=== PATIENT | female | born 1950 | race Caucasian/White ===

== ENCOUNTER 2019-03-19 20:28 | Inpatient (IN) ==
[2019-03-19] MEDS ORDERED: ONDANSETRON INJ 2 MG/ML 2 ML VIAL IV STA (20:55)
[2019-03-19] MEDS ORDERED: MoRPHine SULFATE 4 MG/ML 1 ML CARP\\VIAL IV STA (20:55)
--- NOTE | 2019-03-19 21:20 | XRay Report ---
XR tibia fibula LT 2V HISTORY: 68 years-old Female fall eval for fx acute left lower leg pain status post fall COMPARISON: None available TECHNIQUE: 2 views of the left tibia and fibula FINDINGS: Acute comminuted, displaced and angulated fracture about the distal metadiaphyseal fibula demonstrate 27 degrees apex medial and 30 degrees apex volar angulation with 8 mm volar displacement of the dist al fracture fragments. Additionally, there is a comminuted and displaced fracture of the medial malle olus which demonstrates 1.8 cm medial displacement. [place] medial angulation of the distal tibia in rel ation to the talus with pathologic widening of the distal tibiofibular syndesmosis. Subluxation of th e tibiotalar joint, best appreciated on the lateral film. Moderate soft tissue swelling about the ank le with posttraumatic joint effusion. Proximal tibia and fibula appear intact. IMPRESSION: Acute fracture subluxation of the ankle with medial malleolar and distal fibular fracture s as above. The above report was generated using voice recognition software. It may contain grammatical, syntax o r spelling errors. Electronically signed by: Ruben Long M.D. 03/19/2019 9:19 PM
--- NOTE | 2019-03-19 21:22 | XRay Report ---
XR hand RT min 3V routine HISTORY: 68 years-old Female fall eval for fx acute right hand pain status post fall COMPARISON: None available TECHNIQUE: 3 views of the right hand FINDINGS: Demineralized appearance of the bones. Mild radiocarpal with moderate first carpometacarpal and mostl y mild multidigit interphalangeal and metacarpal phalangeal osteoarthritis. No acute fracture, disloc ation or opaque foreign body. IMPRESSION: No acute fracture or dislocation. The above report was generated using voice recognition software. It may contain grammatical, syntax o r spelling errors. Electronically signed by: Ruben Long M.D. 03/19/2019 9:21 PM
[2019-03-19 21:33] LABS: Basophils # (auto) 0.03 K/uL (0-0.2); Basophils % (auto) 0.2 %; Eosinophils # (auto) 0.04 K/uL (0-0.5); Eosinophils % (auto) 0.3 %; Hematocrit (blood only) 41.1 % (37-47); Hemoglobin 14.2 g/dL (12.0-16.0); Immature Granulocytes # (auto) 0.03 K/uL (0.00-0.02); Immature Granulocytes % (auto) 0.2 %; Lymphocytes % (auto) 19.6 %; Mean Corpuscular Hgb Conc 34.5 g/dL (32-36); Mean Corpuscular Volume 94.5 fL (80-100); Mean Platelet Volume 9.6 fL (7.4-10.4); Monocytes # (auto) 0.75 K/uL (0.11-0.59); Monocytes % (auto) 6.1 %; Neutrophils # (auto) 9.01 K/uL (1.4-6.5); Neutrophils % (auto) 73.6 %; Platelet Count 264 K/uL (130-400); RDW Coefficient of Variation 14.9 % (11.5-14.5); Red Blood Count 4.35 M/uL (4.2-5.4); White Blood Count 12.26 K/uL (4.8-10.8)
[2019-03-19 21:44] LABS: Partial Thromboplastin Time 27.2 Seconds (21.0-31.0)
[2019-03-19 21:48] LABS: BUN Creatinine Ratio 23.7 (10-20); Calcium 9.1 mg/dl (8.5-10.1); Creatinine Clr Calc Pharmacy 61.9 ml/min; Est GFR (African American) 80.5; Est GFR (Non-African American) 69.4; Potassium 3.8 mmol/L (3.5-5.1)
--- NOTE | 2019-03-19 21:56 | XRay Report ---
XR ankle LT min 3V routine HISTORY: 68 years-old Female fall eval for fx acute left ankle pain status post fall COMPARISON: Left tibia and fibula radiographs of same day TECHNIQUE: 3 views of the left ankle FINDINGS: The bones appear mildly demineralized. Acute comminuted, displaced and angulated fracture about the d istal metadiaphyseal fibula demonstrates 27 degrees apex medial and 30 degrees apex volar angulation with 8 mm volar displacement of the distal fracture fragments. Additionally, there is a comminuted an d displaced fracture of the medial malleolus which demonstrates 1.3 cm medial displacement. [place] medi al angulation of the distal tibia in relation to the talus with pathologic widening of the distal tib iofibular syndesmosis. Subluxation of the tibiotalar joint with apex medial angulation. The distal ti marielena is subluxed anteriorly in relation to the talar dome. Fracture fragment of the distal tibia measu res up to 2.0 cm in length and the region of the distal tibiofibular syndesmosis. Moderate soft tissu e swelling about the ankle with posttraumatic joint effusion. IMPRESSION: Acute fracture subluxation of the ankle with comminuted, displaced and angulated fracture s of the distal tibia and fibula as above. The above report was generated using voice recognition software. It may contain grammatical, syntax o r spelling errors. Electronically signed by: Ruben Long M.D. 03/19/2019 9:55 PM
[2019-03-19] MEDS ORDERED: fentaNYL citrate 100 MCG/2 ML VIAL ONE (22:49)
[2019-03-20] MEDS ORDERED: ONDANSETRON INJ 2 MG/ML 2 ML VIAL IV PRN ×2 (00:09→09:31)
[2019-03-20] MEDS: SODIUM CHLORIDE 0.9% 1000ML 1,000 ML IV SCH ×4 (01:12→22:33)
[2019-03-20] MEDS: HYDROmorphone INJ 0.5 MG/0.5 ML SYR IV PRN ×3 (01:53→06:19)
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
[2019-03-20] MEDS ORDERED: CEFAZOLIN 1000MG 1,000 MG/7.5 ML SYR IV SCH (06:00)
--- NOTE | 2019-03-20 06:52 | Anesthesiology Consultation ---
Date of Service March 20, 2019 Assessment & Plan (1) Encounter for pre-operative examination: Chart Review Chart Review: Acceptable Risk for Surgery and Patient NOT seen in Pre Admission Testing Consults Requested none History Height/Weight Height: 5 ft 6 in Weight: 62.1 kg Allergies Allergy/AdvReac Type Severity Reaction Status Date / Time No Known Allergies Allergy Verified 03/19/19 21:12 Medications Home Medications Medication Instructions Recorded Confirmed Last Taken aspirin [Aspir-81] 81 mg PO DIRECTED PRN 03/19/19 03/19/19 Unknown cholecalciferol (vitamin D3) 1,000 unit PO DAILY 03/19/19 03/19/19 03/19/19 [Vitamin D3] usrszyes-froq-oom-folic acid [One 1 tab PO DAILY 03/19/19 03/19/19 03/19/19 Daily For Women] omega 3-rbg-rof-fish oil [Fish Oil] 1 cap PO DAILY 03/19/19 03/19/19 03/19/19 Active Medications Generic Name Dose Route Start Last Admin Trade Name Freq PRN Reason Stop Dose Admin Hydromorphone HCl 0.5 mg 03/20/19 00:09 03/20/19 06:19 Dilaudid IV 04/03/19 00:08 0.5 mg Q2H PRN Administration Pain Sodium Chloride 1,000 mls @ 80 mls/hr 03/20/19 00:15 03/20/19 01:12 Nss 1000ml IV 04/19/19 00:14 80 mls/hr .[id number] MAURICIO Administration NPO Date Last Intake of Fluids: 03/19/19 Time Last Intake of Fluids: 23:59 Date Last Intake of Solids: 03/19/19 Time Last Intake of Solids: 23:59 Past Medical History Medical History Depression Osteoarthritis Past Family History Family History Other Family history non-contributory Past Surgical History Surgical History History of cataract surgery History of section Social History Smoking Status: Current every day smoker tobacco type: cigarettes Do You Dip or Chew Tobacco: No Hx Alcohol Use: Yes alcohol intake frequency: holidays/special occasions only Hx Substance Use: No substance use type: does not use Physical Exam Vital Signs Last Vital Signs Temp 37.1 C 03/20/19 01:10 Pulse 77 03/20/19 01:10 Resp 18 03/20/19 01:10 BP 109/65 03/20/19 01:10 Pulse Ox 95 03/20/19 01:10 Testing Laboratory Results 03/19/19 21:25 03/19/19 21:25 PT 10.0 Seconds (9.0-12.0) 03/19/19 21:25 INR 1.0 (0.9-1.1) 03/19/19 21:25 APTT 27.2 Seconds (21.0-31.0) 03/19/19 21:25 Electrocardiogram Date: 03/20/19 Findings: + NSR @ (72) Poor data quality, interpretation may be adversely affected Normal sinus rhythm Possible Left atrial enlargement Rightward axis Borderline ECG No previous ECGs available
--- NOTE | 2019-03-20 07:07 | CT Scan Report ---
CT ankle LT wo con HISTORY: 68 years-old Female fracture with reduction acute left ankle fracture status post reduction and casting COMPARISON: Left ankle and left tibia and fibula radiographs of same day TECHNIQUE: Multiple axial CT images of the left ankle were obtained without the use of IV contrast. A dose lowering technique was used consistent with the principals of ALARA. FINDINGS: Mildly demineralized appearance of the bones. Acute comminuted angulated and displaced fracture of th e distal fibular metadiaphysis redemonstrated which appears unchanged. Acute comminuted intra-articul ar fracture of the distal tibia is noted with posterior malleolar fracture displaced posteriorly 11 m m. Acute comminuted and displaced medial malleolar fracture. The distal tibia is displaced 1.2 cm med ially in relation to the medial malleolus are fracture fragment. Intra-articular impaction fracture a bout the posterior aspect of the tibial plafond. Talus appears intact without acute fracture or osteo chondral injury identified. Distal tibia is displaced anteriorly and medially in relation to the talu s. Pathologic widening of the distal tibiofibular syndesmosis. Acute nondisplaced fracture about the anterior process calcaneus. Moderate soft tissue swelling about the ankle. Ligaments and tendons are not well evaluated by CT [place]. A few foci of deep tissue air noted. Small joint effusion. IMPRESSION: 1. Acute comminuted, angulated and displaced distal fibular fracture redemonstrated. 2. Acute comminuted and displaced fractures about the medial malleolus and posterior malleolus. Addit ionally, there is an acute intra-articular impaction fracture about the posterior aspect of the tibia l plafond. 3. Unchanged tibiotalar subluxation. 4. Acute nondisplaced fracture about the anterior process calcaneus. 5. Pathologic widening of the distal tibiofibular syndesmosis compatible with syndesmotic ligamentous disruption. 6. No acute talar fracture identified. The above report was generated using voice recognition software. It may contain grammatical, syntax o r spelling errors. Electronically signed by: Ruben Long M.D. 03/20/2019 7:06 AM
--- NOTE | 2019-03-20 07:12 | History & Physical Report ---
Date of Service March 20, 2019 Assessment & Plan (1) Trimalleolar fracture of left ankle: We will proceed with an open reduction internal fixation of her left ankle. She understands the risks, benefits, and alternatives procedures like to proceed. We will take her to the operating room this morning. Postoperatively she will be placed in a trauma splint and likely be nonweightbearing for 6 weeks. Case management will be ordered to help figure out discharge planning. Present on Admission?: Yes History of Present Illness Chief Complaint: Left ankle fracture Primary Care Provider: NO PCP Zeina is a pleasant 68-year-old female who fell off a riding mower last evening. She sustained a trimalleolar left ankle fracture. She came [facility] in the emergency room where radiographs confirm the diagnosis. She was then reduced and sent through a CAT scan to rule out any significant pilon injury. She was then admitted to the orthopedic service for operative fixation the following morning. Allergies Allergy/AdvReac Type Severity Reaction Status Date / Time No Known Allergies Allergy Verified 03/19/19 21:12 Home Medications Home Medications Medication Instructions Recorded Confirmed Type aspirin [Aspir-81] 81 mg PO DIRECTED PRN 03/19/19 03/19/19 History cholecalciferol (vitamin D3) 1,000 unit PO DAILY 03/19/19 03/19/19 History [Vitamin D3] vmrlgrjc-qurx-wmf-folic acid [One 1 tab PO DAILY 03/19/19 03/19/19 History Daily For Women] omega 0-vwf-nuh-fish oil [Fish Oil] 1 cap PO DAILY 03/19/19 03/19/19 History Past Med/Surg History Medical History Depression Osteoarthritis Surgical History History of cataract surgery History of section Family History Other Family history non-contributory Social History Preferred Language: Omani Table Hand Required: No Beliefs That Will Affect Care: None Current Living Situation: Family Other Information That Helps Us Care for You: No Feels Safe at Home: Yes Safety Concerns: Feels Safe At This Time Smoking Status: Current every day smoker Tobacco Type: cigarettes ; Do You Dip or Chew Tobacco: No ; Second Hand Exposure: No ; Tobacco Cessation Education Requested by Patient: No Hx Alcohol Use: Yes Hx Substance Use: No Review of Systems All systems reviewed & are unremarkable except as noted in HPI & below Physical Exam Musculoskeletal: On physical examination of the left ankle, a trauma splint is in place. She can move all of her toes. Her left leg is elevated. Results & Data Vital Signs (Past 12 Hours) Vital Signs Temp Pulse Pulse Resp BP BP Pulse Ox 03/20/19 06:50 36.9 C 75 18 93/57 L 90 03/20/19 01:10 37.1 C 77 18 109/65 95 03/20/19 00:57 76 16 105/57 L 94 03/20/19 00:01 74 19 101/54 L 94 03/19/19 23:01 83 16 112/57 L 94 03/19/19 22:09 78 18 116/59 L 94 03/19/19 20:33 36.5 C 87 20 127/72 97 Diagnostic Findings Radiographs of the left ankle do show a displaced, unstable, trimalleolar left ankle fracture. There is a possible syndesmotic injury as well. CT scan of the left ankle shows a small pilon impaction fracture in the posterior aspect but the remainder of the distal tibia looks okay.
--- NOTE | 2019-03-20 07:26 | XRay Report ---
XR chest 2V routine HISTORY: 68 years-old Female pre-op preoperative exam. No acute chest complaints COMPARISON: None available TECHNIQUE: AP and lateral views of the chest FINDINGS: Cardiac silhouette is mildly enlarged. No pneumothorax, pleural effusion or overt pulmonary edema. Mi nimal bibasilar opacities suggest probable atelectasis. Demineralized appearance of the bones with de generative changes of the shoulders and spine. 30% anterior endplate compression deformity of an uppe r lumbar segment, likely L1 is noted with 4 mm retropulsion, age-indeterminate without comparison. IMPRESSION: 1. No acute processes of the chest. 2. Compression deformity of the upper lumbar spine, likely L1 with 4 mm retropulsion is age indetermi morales. Correlate clinically. The above report was generated using voice recognition software. It may contain grammatical, syntax o r spelling errors. Electronically signed by: Ruben Long M.D. 03/20/2019 7:24 AM
[2019-03-20] MEDS ORDERED: MIDAZOLAM HCL 1 MG/ML 2ML VIAL ONE (07:28)
[2019-03-20] MEDS ORDERED: fentaNYL citrate 100 MCG/2 ML VIAL ONE (07:28)
[2019-03-20] MEDS ORDERED: DEXAMETHASONE SOD INJ 4 MG/ML VIAL ONE (08:23)
[2019-03-20] MEDS ORDERED: PROPOFOL IV EMULSION 10 MG/ML 20 ML VIAL IV ONE (08:23)
[2019-03-20] MEDS ORDERED: LIDOCAINE HCL 2% 2 ML VIAL/AMP(20MG/ML) INFIL ONE (08:23)
[2019-03-20] MEDS ORDERED: ONDANSETRON INJ 2 MG/ML 2 ML VIAL ONE (08:23)
[2019-03-20] MEDS ORDERED: BUPIVACAINE/EPINEPHRINE 0.25% 1:200,000 30 ML VIAL ONE ×2 (08:46→08:47)
[2019-03-20] MEDS ORDERED: BUPIVACAINE 0.5 % 5 MG/1 ML PF 10ML VIAL ONE (08:47)
[2019-03-20] MEDS ORDERED: BUPIVACAINE/EPINEPHRINE 0.5% MPF 1:200,000 30 ML VIAL ONE ×2 (08:47→10:28)
[2019-03-20] MEDS ORDERED: ATROPINE SULFATE 0.1 MG/ML 10ML SYR IV PRN (09:31)
[2019-03-20] MEDS ORDERED: ePHEDrine sulfate 50 MG/ML AMP IV PRN (09:31)
[2019-03-20] MEDS ORDERED: PROMETHAZINE HCL 6.25 MG in SODIUM CHLORIDE 0.9% 50 ML IV PRN (09:31)
[2019-03-20] MEDS ORDERED: fentaNYL citrate 100 MCG/2 ML VIAL IV PRN (09:31)
[2019-03-20] MEDS ORDERED: HYDROmorphone INJ 1 MG/ML SYRINGE IV PRN (09:31)
[2019-03-20] MEDS ORDERED: CEFAZOLIN 250 MG/ML 1 GM VIAL ONE (09:37)
[2019-03-20] MEDS ORDERED: KETOROLAC 30 MG/ML VIAL ONE (10:30)
--- NOTE | 2019-03-20 10:49 | Fluoroscopy Report ---
FL ankle LT min 3V RTN HISTORY: 68 years-old Female ORIF LEFT ANKLE acute fracture of the left ankle COMPARISON: Left ankle CT 03/19/2019 TECHNIQUE: 3 spot fluoroscopic images of the left ankle were obtained utilizing 40.6 seconds fluorosc opy time FINDINGS: 2 cannulated screws fixate the medial malleolar fracture. Elongated lateral plate and screw fusion cervantes rdware fixates the acute comminuted distal fibular fracture. There is improved near anatomic alignmen t. Expected postsurgical soft tissue swelling and deep tissue air. IMPRESSION: Fluoroscopic assistance as above. Please see operative report for further details. The above report was generated using voice recognition software. It may contain grammatical, syntax o r spelling errors. Electronically signed by: Ruben Long M.D. 03/20/2019 10:48 AM
--- NOTE | 2019-03-20 11:13 | Operative Report ---
Post Operative Report Pre & Post Diagnosis Operation Date: 03/20/19 09:00 Pre-Op Diagnosis: Trimalleolar left Ankle Fracture Post-Op Diagnosis: Trimalleolar left Ankle Fracture Procedure Operation Date: 03/20/19 09:00 Actual Procedures p Open Reduction Internal Fixation Left trimalleolar ankle(Left) - Maico Goldstein DO Surgeon Maico Goldstein DO Hims Clerk None Estimated Blood Loss 20 Findings Consistent with Post-Op Diagnosis Specimens None Complications none Disposition Disposition: Recovery Room Indications Zeina is a 68-year-old female who fell off a riding lawnmower yesterday. She sustained a left ankle fracture. She came to [facility] the emergency room and w as admitted to the orthopedic service. After discussions at bedside, she elected to proceed with open reduction internal fixation of her left ankle. Description of Procedure On March 20, 2019 she was brought down from her hospital room to the preoperative holding area. The operative extremity was identified and signed. She was given a preoperative antibiotic and a regional block. She was then taken back to the operating room and laid on the table in the supine position. She was put under general anesthesia. The left leg was then prepped and draped in sterile fashion. A timeout was done. The patient and the operative extremity was properly identified. A longitudinal incision was made over the distal fibula. Dissection was taken down to the fibular shaft. It was a long comminuted fracture of the distal shaft of the fibula. A 12 hole Synthes 3.5 mm locking one third tubular plate was placed. Appropriate placement was checked under fluoroscopy. Once I was happy with the placement of the plate and the overall reduction, locking screws were placed both proximally and distally. Screw length and fracture reduction were checked on orthogonal fluoroscopic images. Attention was then turned to the medial side. A curvilinear incision was made over the medial malleolus. Dissection was taken down to the fracture fragment. The fragment was reduced with a reduction clamp. 2 Synthes 4 oh cancellus screws were placed. This gave an anatomic reduction of the medial malleolar fragment. The wound was then irrigated. The deep fascial layer on the lateral side was fully closed with 2-0 Vicryl suture. Skin on both sides was closed with 3-0 Vicryl and ahsan. The surrounding soft tissues were injected with 30 cc of Marcaine with epinephrine. She was then placed in a trauma splint. She was then extubated and transferred to a [facility]. She was taken to the postanesthesia care unit in stable condition. She tolerated the procedure well. I attest to the content of the Intraoperative Record and any orders documented therein. Any exceptions are noted below.
--- NOTE | 2019-03-20 12:00 | Anesthesiology Progress Note ---
Date of Service March 20, 2019 Anesthesia Post Procedure Vital Signs Vital Signs: Temp Pulse Pulse Pulse Resp BP BP 03/20/19 11:50 36.8 C 80 16 112/54 L 03/20/19 11:40 36.8 C 72 16 96/54 L 03/20/19 11:30 72 13 103/51 L 03/20/19 11:20 79 15 109/61 03/20/19 11:10 37.1 C 80 15 112/60 03/20/19 08:48 72 20 126/57 L 03/20/19 06:50 36.9 C 75 18 93/57 L 03/20/19 01:10 37.1 C 77 18 109/65 03/20/19 00:57 76 16 105/57 L 03/20/19 00:01 74 19 101/54 L 03/19/19 23:01 83 16 112/57 L 03/19/19 22:09 78 18 116/59 L 03/19/19 20:33 36.5 C 87 20 127/72 Pulse Ox 03/20/19 11:50 94 03/20/19 11:40 95 03/20/19 11:30 95 03/20/19 11:20 95 03/20/19 11:10 92 03/20/19 08:48 91 03/20/19 06:50 90 03/20/19 01:10 95 03/20/19 00:57 94 03/20/19 00:01 94 03/19/19 23:01 94 03/19/19 22:09 94 03/19/19 20:33 97 Pain Intensity Left Ankle: Pain Intensity: 8 Transfer of Care Handoff Completed per policy Notes Mental Status: alert / awake / arousable Patient Amnestic to Procedure: Yes Nausea / Vomiting: adequately controlled Pain: adequately controlled Airway Patency, RR, SpO2: stable & adequate BP & HR: stable & adequate Hydration State: stable & adequate Anesthetic Complications: no major complications apparent Notes: Block working well in pacu
[2019-03-20] MEDS ORDERED: BISACODYL 10 MG SUPP PR PRN (12:03)
[2019-03-20] MEDS ORDERED: METOCLOPRAMIDE HCL INJ 5 MG/ML 2 ML VIAL IV PRN (12:03)
[2019-03-20] MEDS ORDERED: OXYCODONE HCL IR 5 MG TAB (IMMEDIATE RELEASE) PO PRN (12:03)
[2019-03-20] MEDS ORDERED: NALOXONE HCL 0.4 MG/1 ML VIAL/CARP IV PRN (12:03)
[2019-03-20] MEDS ORDERED: MAGNESIUM HYDROXIDE SUSP 30 ML UDC PO PRN (12:03)
[2019-03-20] MEDS: KETOROLAC TROMETHAMINE 15 MG/ML VIAL IV SCH ×3 (12:51→23:28)
[2019-03-20] MEDS: CEFAZOLIN 1000MG 1,000 MG/7.5 ML SYR IV SCH (17:17)
[2019-03-20] MEDS ORDERED: SENNA 8.6 MG TAB PO SCH (21:00)
[2019-03-20] MEDS: DOCUSATE SODIUM 100 MG CAP PO SCH (21:03)
[2019-03-20] MEDS: ASPIRIN 81 MG ECTAB PO SCH (21:03)
[2019-03-21] MEDS: CEFAZOLIN 1000MG 1,000 MG/7.5 ML SYR IV SCH (01:07)
[2019-03-21] MEDS: KETOROLAC TROMETHAMINE 15 MG/ML VIAL IV SCH ×2 (05:17→11:43)
--- NOTE | 2019-03-21 07:06 | Orthopedic Progress Note ---
Date of Service March 21, 2019 Assessment & Plan (1) Trimalleolar fracture of left ankle: Continue current pain control. PT/OT this morning (NWB LLE) discharge planning: home today after PT. continue dvt prophylaxis. F/u with Dr. Goldstein in approx 2 weeks. Subjective POD #1 from ORIF left ankle fx. Pain is controlled. She said she was a little dizzy. No chest pain or shortness of breath. She says that her splint feels comfortable, not too tight. Physical Exam Physical Exam: She's alert and oriented. NAD. LLE: Splint clean, dry, intact. Brisk refill. Sensation intact to touch. She says she's not able to move her toes yet. Results & Data Vital Signs (Past 12 Hours) Vital Signs Temp Pulse Resp BP Pulse Ox 03/21/19 06:45 37.0 C 72 18 99/62 L 90 03/21/19 03:25 36.9 C 79 18 118/71 94 03/20/19 22:45 36.8 C 71 18 102/60 98 03/20/19 20:05 36.9 C 76 16 105/62 96 PG Care Time/CCT Total # of Minutes Spent Total Time Spent with Patient: Total time spent is greater than 50% in coordination of care (as documented) at patient's floor/unit and/or counseling patient:
--- NOTE | 2019-03-21 07:17 | Anesthesiology Progress Note ---
Date of Service March 21, 2019 Anesthesia Post Procedure Vital Signs Vital Signs: Temp Pulse Pulse Resp BP Pulse Ox 03/21/19 06:45 37.0 C 72 18 99/62 L 90 03/21/19 03:25 36.9 C 79 18 118/71 94 03/20/19 22:45 36.8 C 71 18 102/60 98 03/20/19 20:05 36.9 C 76 16 105/62 96 03/20/19 15:03 36.8 C 67 18 98/60 L 97 03/20/19 14:05 71 18 94/57 L 97 03/20/19 13:15 93 H 18 112/51 L 93 03/20/19 12:33 78 16 111/65 95 03/20/19 12:05 36.6 C 70 16 111/63 95 03/20/19 11:50 36.8 C 80 16 112/54 L 94 03/20/19 11:40 36.8 C 72 16 96/54 L 95 03/20/19 11:30 72 13 103/51 L 95 03/20/19 11:20 79 15 109/61 95 03/20/19 11:10 37.1 C 80 15 112/60 92 03/20/19 08:48 72 20 126/57 L 91 Pain Intensity Left Ankle: Pain Intensity: 8 Notes Mental Status: alert / awake / arousable and participated in evaluation Patient Amnestic to Procedure: Yes Nausea / Vomiting: adequately controlled Pain: adequately controlled Airway Patency, RR, SpO2: stable & adequate BP & HR: stable & adequate Hydration State: stable & adequate Anesthetic Complications: no major complications apparent and Pt Satisfied with anesthetic care
[2019-03-21] MEDS: DOCUSATE SODIUM 100 MG CAP PO SCH (08:28)
[2019-03-21] MEDS: ASPIRIN 81 MG ECTAB PO SCH (08:28)
[2019-03-21] MEDS ORDERED: MULTIVITAMIN TAB PO SCH (09:00)
--- NOTE | 2019-03-31 07:53 | Discharge Summary ---
Date of Service March 31, 2019 Admission HPI Per Admitting Provider Zeina is a pleasant 68-year-old female who fell off a riding mower last evening. She sustained a trimalleolar left ankle fracture. She came to [facility] in the emergency room where radiographs confirm the diagnosis. She was then reduced and sent through a CAT scan to rule out any significant pilon injury. She was then admitted to the orthopedic service for operative fixation the following morning. Principal Diagnosis Left trimalleolar ankle fracture Discharge Data Allergies Allergy/AdvReac Type Severity Reaction Status Date / Time No Known Allergies Allergy Verified 03/19/19 21:12 Consultations 03/20/19 00:13 Consult Anesthesiology Routine 03/20/19 12:03 Consult Case Management - Discharge Planning Routine Procedures Performed Operation Date: 03/20/19 09:00 Actual Procedures p Open Reduction Internal Fixation Left Ankle(Left) - Maico Goldstein DO Ordered Studies 03/19/19 23:16 CT ankle LT wo con Urgent 03/20/19 06:50 US - OR guided needle placemen Routine 03/20/19 07:22 FL ankle LT min 3V RTN Routine FL fluoroscopy <1hr Routine Hospital Course (1) Trimalleolar fracture of left ankle: Patient arrived at [facility] emergency room with a trimalleolar ankle fracture. She was admitted to the orthopedic service. Following day she went to the operating room and underwent open reduction internal fixation of her right ankle. Postoperatively she was placed in splint and discharged back to the general orthopedic floors. She was started on aspirin twice a day for DVT prophylaxis. Her hospital course was uneventful. On postop day #1 she was able to go participate well with physical therapy. She was able to be compliant with the nonweightbearing instructions. Her pain was well controlled. She was then discharged home. She will follow-up with orthopedics in 2 weeks. Total Time Total Time Spent Total Time Spent (In Minutes): 20 Discharge Plan Discharge Items Patient Disposition: Home - Home Health Services Reason For Visit: L ANKLE FRACTURE Discharge Diagnosis: Fixation left ankle fracture Discharge Goals: Decrease discomfort and Improve function Activity: Per 'Additional Instructions' section Non-emergency contact: Surgeon Call non-emergency contact if: your wound has increased redness and your wound has increased drainage Follow-up/Referrals: PCP,NO [Physician] - Diet: Regular Addtl Provider Instructions: ORTHOPEDIC INSTRUCTIONS Activity Recommendations: You will be nonweightbearing on the left ankle for at least 6 weeks. Medications: He will be given a narcotic medication to take as needed for pain control. You need to take aspirin 81 mg twice a day for 6 weeks to prevent blood clots. Dressing Care: Leave the trauma splint in place until follow-up appointment Showering: You may shower but do not get the trauma splint wet. Things To Watch For: 1. Drainage from the incision site that occurs more than one week after your surgery. 2. Increased redness at the incision site. 3. Fever above 102 degrees Fahrenheit. 4. Unusual chest pain or shortness of breath. 5. Call [facility] at with any of the above problems Follow-Up Visit: Follow-up with Dr. Goldstein 2 weeks after your day of surgery. Please call to make an appointment or be sure your rehab facility has made one. If you have any questions call Prescriptions: New oxycodone-acetaminophen [Percocet] 5-325 mg tablet 1 tab PO Q6H PRN (Reason: pain) Qty: 30 RF: 0 Continued cholecalciferol (vitamin D3) [Vitamin D3] 1,000 unit Capsule 1,000 unit PO DAILY RF: 0 One Daily For Women 18-0.4 mg Tablet 1 tab PO DAILY RF: 0 omega 8-nyc-wnr-fish oil [Fish Oil] 1,000 mg (120 mg-180 mg) Capsule 1 cap PO DAILY RF: 0 Changed aspirin [Aspir-81] 81 mg Tablet,Delayed Release (Dr/Ec) 81 mg PO BID PRN (Reason: Pain) Qty: 0 RF: 0 Stand-Alone Forms: [facility] [email or web address], Opioid Pain Management Lauren/Other Patient Handouts: Surgery Prevent DVT After Discharge Orders: Discharge Order (Routine); Ordered 03/21/19 Ordered By: Arthur Hsu Admission Data Admit Date/Time: 03/20/19 00:09 Attending Provider: Maico Goldstein Admit Provider: Maico Goldstein Primary Care Provider: Jaziel Nuno. Other Providers: Masha Buenrostro ; Kate Siddiqui ; Dora Morales ; Brianna Mccurdy ; Padma Shane ; Toshia Jon ; Howie Alston ; Armando Pacheco ; Devan Montes De Oca ; Christian Romero ; Danae Romero ; Maico Mckinney ; Emily Fong ; Familia Dickinson ; Last Guido ; Altaf Murrieta ; Brett Uribe ; Brendan Russell ; Imani Cruz ; Brian Pang ; Betty Kruger ; Carmen Pang ; Aston Greenwood ; Andressa Lang ; Raymundo Edwards ; Danna Benjamin ; Cally Orta ; Darren Green ; Allyssa Clements ; Yolis Jane ; Valeria Mendoza ; Devora Jackson ; Andrew Jackson V ; Roger Garcia ; Dora Alford ; Pasha Loving ; Kadeem Lugo ; Zeina Wharton ; Kallie Olivo ; Saskia Alford ; Andrew Yan ; Tio Cruz ; Sara Newman ; Valeria Munguia ; Devan Arce ; Chrissy Pérez. ; Last Burr. ; Kana Russell ; Mitra Davies ; Jayden Delvalle Service: Surgical Services Other Interventions: Discharge Summary Assessment (RN) Last Done: 03/21/19 10:37 DC Date/Time DO NOT enter until pt leaves facility: 03/21/19 13:15
== END 2019-03-21 13:15 | disposition home health service (06) | DRG 494 ==
LOC: EDBD → ED 20:28 → 3E 03-20 00:09
DX: F32.9 Major depressive disorder, single episode, unspecified; S82.852A Displaced trimalleolar fracture of left lower leg, initial encounter for closed fracture; Z79.82 Long term (current) use of aspirin; W28.XXXA Contact with powered lawn mower, initial encounter